=== PATIENT | male | born 1980 | race Caucasian/White ===

== ENCOUNTER 2021-01-19 18:42 | Emergency (ER) | payer BC ==
[~2021-01-19] VITALS: Ht 182.9 cm; Wt 115.0 kg
[2021-01-19 18:47] VITALS: BP 142/73
[2021-01-19] MEDS ORDERED: LIDOCAINE-MPF 1%, 5ML ONE (18:55)
--- NOTE | 2021-01-19 18:55 | NUR ---
BIB EMS FROM [facility]. 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 CALL LIGHT IN REACH. ANCEF CONTINUE INFUSING UNTIL COMPLETE. PT DENIES FURTHER NEEDS AT THIS TIME.
--- NOTE | 2021-01-19 18:57 | NUR ---
LIDO PULLED FOR ERPA ADMIN, DIGITAL BLOCK. ERPA WILL REMOVE BANDAGE AFTER FINGER NUMBS. PT DENIES PAIN AT THIS TIME.
--- NOTE | 2021-01-19 19:38 | NUR ---
ERP TO CONSULT WITH JONO
[2021-01-19] MEDS ORDERED: NEOSPORIN OINT. PKT 1 PACKET ONE (19:53)
--- NOTE | 2021-01-19 20:37 | NUR ---
TORCH BURNER PROVIDED WOUND CARE PER ERPA INSTRUCTIONS. NO BLEEDING NOTED AFTER 20 MINUTES OF WOUND CARE. ERPA NOTIFIED. PT AT BEDSIDE. PT TO BE DC.
--- NOTE | 2021-01-19 20:56 | NUR ---
PT STATES HE RECEIVED A TETNUS VACCINE TWO YEARS AGO WHEN HE STEPPED ON A NAIL.
[2021-01-19] MEDS ORDERED: DIPH,PERTUSS(ACELL),TET VAC/PF 0.5 ML IM-VACC ONE (21:00)
== END 2021-01-19 21:00 | disposition home or self-care (01) ==
LOC: ED 20:42
DX: S62.633A Displaced fracture of distal phalanx of left middle finger, initial encounter for closed fracture (principal); S61.313A Laceration without foreign body of left middle finger with damage to nail, initial encounter; Z89.022 Acquired absence of left finger(s); W27.8XXA Contact with other nonpowered hand tool, initial encounter; Y93.89 Activity, other specified; Y92.009 Unspecified place in unspecified non-institutional (private) residence as the place of occurrence of the external cause; Y99.8 Other external cause status
CPT/HCPCS: 64450; 99284